=== PATIENT | male | born 2000 | race Two or more races ===

== ENCOUNTER 2024-11-23 12:28 | Outpatient (CLI) | payer OTHER ==
[2024-11-26 06:04] LABS: hav igm Negative (Negative); hcv Non Reactive (Non Reactive); hep b c Negative (Negative); hep b s ag Negative (Negative)
[2024-11-26 20:08] LABS: chla t Negative (Negative); neiss Negative (Negative)
== END 2024-11-23 12:35 | disposition home or self-care (01) ==
LOC: LAB 12:28
DX: A64 Unspecified sexually transmitted disease (principal)